=== PATIENT | female | born 1965 | race Caucasian/White ===

== ENCOUNTER 2017-07-25 14:08 | Emergency (ER) | payer OTHER ==
[2017-07-25 14:23] VITALS: RESP 18; TEMP 97.7
--- NOTE | 2017-07-25 15:15 | EDPHY ---
H & P Stated Complaint: vaginal bleeding since sat Time Seen by Provider: 07/25/17 15:15 HPI/ROS: CHIEF COMPLAINT: [ ] HISTORY OF PRESENT ILLNESS: [Need 4: Location, Duration, Severity, Quality, Context, Timing Modifying Factors, Associated S&S] REVIEW OF SYSTEMS: A comprehensive 10 point review of systems is otherwise negative aside from elements mentioned in the history of present illness. Source: Patient Exam Limitations: No limitations - Personal History LMP (Females 10-55): Pre Menstrual Current Tetanus/Diphtheria Vaccine: Yes - Medical/Surgical History Hx Asthma: No Hx Chronic Respiratory Disease: No Hx Diabetes: No Hx Cardiac Disease: No Hx Renal Disease: No Hx Cirrhosis: No Hx Alcoholism: No Hx HIV/AIDS: No Hx Splenectomy or Spleen Trauma: No Other PMH: anemia - Social History Smoking Status: Never smoked - Physical Exam Exam: General Appearance: [Alert, no distress] Eyes: [Pupils equal and round no pallor or injection] ENT, Mouth: [Mucous membranes moist] Respiratory: [There are no retractions, lungs are clear to auscultation] Cardiovascular: [Regular rate and rhythm] Gastrointestinal: [Abdomen is soft and nontender, no masses, bowel sounds normal] Neurological: [A&O, normal motor function, normal sensory exam, normal cranial nerves] Skin: [Warm and dry, no rashes] Musculoskeletal: [Neck is supple nontender] Extremities: [symmetrical, full range of motion] Psychiatric: [Patient is oriented X 3, there is no agitation] Constitutional: Initial Vital Signs Temperature (C) 36.5 C 07/25/17 14:20 Heart Rate 84 07/25/17 14:20 Respiratory Rate 18 07/25/17 14:20 Blood Pressure 162/70 H 07/25/17 14:20 O2 Sat (%) 98 07/25/17 14:20 O2 Delivery Mode Room Air Allergies/Adverse Reactions: No Known Allergies Allergy (Unverified 12/28/09 10:55) Home Medications: Medication Instructions Recorded IBUPROFEN 07/25/17 IRON 07/25/17 Departure - Departure Referrals: Altagracia Tomlinson PA [Primary Care Provider] - As per Instructions
[2017-07-25 15:26] LABS: PLATELET COUNT 286 10^3/uL (150-400)
--- NOTE | 2017-07-25 15:31 | EDPHY ---
H & P Time Seen by Provider: 07/25/17 15:15 HPI/ROS: CHIEF COMPLAINT: Vaginal bleeding HISTORY OF PRESENT ILLNESS: The patient is a [place]-speaking 52 y/o female with a history of vaginal bleeding since April complaining of increased bleeding since Tuesday, 2 days ago. She began experiencing vaginal bleeding in April and has been bleeding almost every day since. An ultrasound in April showed a uterine fibroid. She has been on hormone therapy with some relief in bleeding, but stopped taking Premarin. She has an appointment with her heat treater on August 04 to discuss further treatment. Tuesday, she noticed an increase in vaginal bleeding. Today she bled through 8 double pads. She has associated weakness, dizziness, lower abdominal pain, blurred vision upon standing, and bloating. She denies cramping, syncope, constipation, or any other associated symptoms. She was taking iron supplements but began experiencing constipation so she is now consuming a high iron diet. REVIEW OF SYSTEMS: Constitutional: No fever, no chills Eyes: Blurred vision upon standing ENT: No sore throat Respiratory: No cough, no shortness of breath Cardiac: No chest pain Gastrointestinal: Lower abdominal pain. No nausea, no vomiting Genitourinary: No hematuria, no dysuria Musculoskeletal: No leg pain or swelling Skin: No rash Neurological: No headache, no numbness Psychiatric: No depression Adult Physical General Appearance: Alert, no distress, pale appearance Eyes: Pupils equal and round, no conjunctival pallor or injection ENT, Mouth: Mucous membranes moist Neck: Normal inspection Respiratory: Lungs are clear to auscultation Cardiovascular: Regular rate and rhythm Gastrointestinal: Suprapubic tenderness, abdomen is soft Neurological: A&O, nonfocal, normal gait Skin: Warm and dry, no rash Extremities: Nontender, no pedal edema Psychiatric: Mood and affect normal Past Medical/Surgical History: Past Medical History: 1. Fibroids Social History: 1. [place]-speaking 2. Employed 3. Lives in [place] Smoking Status: Never smoked Physical Exam: General Appearance: Alert, pleasant Eyes: Pupils equal and round, no conjunctival pallor or injection ENT, Mouth: Mucous membranes moist Neck: Normal inspection Respiratory: Lungs are clear to auscultation Cardiovascular: Regular rate and rhythm Gastrointestinal: Suprapubic tenderness, abdomen is soft Neurological: A&O, nonfocal exam Skin: Warm and dry, no rash Extremities: Nontender, no pedal edema Psychiatric: Mood and affect normal Constitutional: Initial Vital Signs Temperature (C) 36.5 C 07/25/17 14:20 Heart Rate 84 07/25/17 14:20 Respiratory Rate 18 07/25/17 14:20 Blood Pressure 162/70 H 07/25/17 14:20 O2 Sat (%) 98 07/25/17 14:20 O2 Delivery Mode Room Air Allergies/Adverse Reactions: No Known Allergies Allergy (Unverified 12/28/09 10:55) Home Medications: Medication Instructions Recorded IBUPROFEN 07/25/17 IRON 07/25/17 medroxyPROGESTERone [Provera 10 mg 10 mg PO BID #60 tab 07/25/17 (*)] Medical Decision Making ED Course/Re-evaluation: Hematocrit today is 32. Pelvic exam reveals a moderate amount of blood in the vaginal vault, no active bleeding, uterus is mildly tender and slightly enlarged. Prior ultrasound revealed fibroids, including ultrasound from April 2017. Presentation consistent with dysfunctional uterine bleeding secondary to fibroids. I consulted Dr. Evan Hameed from [facility]. We will place her on Provera 10 mg twice daily and have her resume taking iron supplementation. She will also increase her oral fluids. She has an appointment in 1 week to see rent and miscellaneous remittance clerk at [facility]. They will try to get her in sooner with OBGYN. Differential Diagnosis: Differential diagnosis includes does not limited to miscarriage, ectopic , severe anemia, hypotension, dehydration. - Data Points Laboratory Results: Laboratory Results 07/25/17 15:00 07/25/17 15:00 07/25/17 07/25/17 07/25/17 15:00 15:00 15:00 WBC 9.97 10^3/uL H 10^3/uL (3.80-9.50) RBC 3.80 10^6/uL L 10^6/uL (4.18-5.33) Hgb 10.4 g/dL L g/dL (12.6-16.3) Hct 32.1 % L % (38.0-47.0) MCV 84.5 fL fL (81.5-99.8) MCH 27.4 pg L pg (27.9-34.1) MCHC 32.4 g/dL g/dL (32.4-36.7) RDW 13.6 % % (11.5-15.2) Plt Count 286 10^3/uL 10^3/uL (150-400) MPV 11.2 fL fL (8.7-11.7) Neut % (Auto) 70.4 % % (39.3-74.2) Lymph % (Auto) 21.7 % % (15.0-45.0) [place] % (Auto) 5.7 % % (4.5-13.0) Eos % (Auto) 1.7 % % (0.6-7.6) Baso % (Auto) 0.2 % L % (0.3-1.7) Nucleat RBC Rel Count 0.0 % % (0.0-0.2) Absolute Neuts (auto) 7.02 10^3/uL H 10^3/uL (1.70-6.50) Absolute Lymphs (auto) 2.16 10^3/uL 10^3/uL (1.00-3.00) Absolute Monos (auto) 0.57 10^3/uL 10^3/uL (0.30-0.80) Absolute Eos (auto) 0.17 10^3/uL 10^3/uL (0.03-0.40) Absolute Basos (auto) 0.02 10^3/uL 10^3/uL (0.02-0.10) Absolute Nucleated RBC 0.00 10^3/uL 10^3/uL (0-0.01) Immature Gran % 0.3 % % (0.0-1.1) Immature Gran # 0.03 10^3/uL 10^3/uL (0.00-0.10) Sodium 139 mEq/L mEq/L (134-144) Potassium 4.0 mEq/L mEq/L (3.5-5.2) Chloride 108 mEq/L mEq/L (97-110) Carbon Dioxide 21 mEq/l L mEq/l (22-31) Anion Gap 10 mEq/L mEq/L (8-16) BUN 12 mg/dL mg/dL (7-23) Creatinine 0.8 mg/dL mg/dL (0.6-1.0) Estimated GFR > 60 Glucose 91 mg/dL mg/dL (70-100) Calcium 8.3 mg/dL L mg/dL (8.5-10.4) Total Bilirubin 0.1 mg/dL mg/dL (0.1-1.4) AST 18 IU/L IU/L (14-46) ALT 31 IU/L IU/L (9-52) Alkaline Phosphatase 96 IU/L IU/L (38-126) Total Protein 6.1 g/dL L g/dL (6.3-8.2) Albumin 3.4 g/dL L g/dL (3.5-5.0) Beta HCG, Qual NEGATIVE Medications Given: Discontinued Medications Sodium Chloride (Ns) 1,000 mls @ 0 mls/hr IV ONCE ONE; Wide Open PRN Reason: Protocol Stop: 07/25/17 15:43 Last Admin: 07/25/17 16:09 Dose: 1,000 mls Medroxyprogesterone Acetate (Provera) 10 mg PO EDNOW ONE Stop: 07/25/17 16:00 Last Admin: 07/25/17 17:00 Dose: 10 mg Departure - Departure Disposition: Home, Routine, Self-Care Clinical Impression: Dysfunctional uterine bleeding Condition: Good Instructions: Dysfunctional Uterine Bleeding (ED) Additional Instructions: 1. Take your prescription for Provera twice a day as instructed. 2. Please begin taking your iron supplement again. 3. [facility] will call you to try and schedule an sooner appointment. 4. Please return to the ED for worsening of condition. 1. [place] dale receta para Provera dos veces al pearce a kaelyn le indicaron. 2. Por favor empiece a santa el suplemento de mathew de nuevo. 3. [facility] le llamara para tratar de hacer la graham antes de la que tiene programada. 4. Por favor regrese a la sb de emergencia si dale condicion empeora. Referrals: Altagracia Tomlinson PA [Primary Care Provider] - As per Instructions Prescriptions: medroxyPROGESTERone [Provera 10 mg (*)] 10 mg PO BID #60 tab Print Language: [place] Report Scribed for: Laura Stafford Report Scribed by: Danay Valdes Date of Report: 07/25/17 Time of Report: 16:03 Physician Review and Approval Statement: 07/25/17 16:03 Portions of this note were transcribed by a medical records assistant. I personally performed a history, physical exam, medical decision making, and confirmed accuracy of information the transcribed note.
--- NOTE | 2017-07-25 15:31 | EDPHY ---
H & P Time Seen by Provider: 07/25/17 15:15 HPI/ROS: CHIEF COMPLAINT: Vaginal bleeding HISTORY OF PRESENT ILLNESS: The patient is a Bhutanese-speaking 52 y/o female with a history of vaginal bleeding since April complaining of increased bleeding since Tuesday, 2 days ago. She began experiencing vaginal bleeding in April and has been bleeding almost every day since. An ultrasound in April showed a uterine fibroid. She has been on hormone therapy with some relief in bleeding, but stopped taking Premarin. She has an appointment with her lead python developer on August 04 to discuss further treatment. Tuesday, she noticed an increase in vaginal bleeding. Today she bled through 8 double pads. She has associated weakness, dizziness, lower abdominal pain, blurred vision upon standing, and bloating. She denies cramping, syncope, constipation, or any other associated symptoms. She was taking iron supplements but began experiencing constipation so she is now consuming a high iron diet. REVIEW OF SYSTEMS: Constitutional: No fever, no chills Eyes: Blurred vision upon standing ENT: No sore throat Respiratory: No cough, no shortness of breath Cardiac: No chest pain Gastrointestinal: Lower abdominal pain. No nausea, no vomiting Genitourinary: No hematuria, no dysuria Musculoskeletal: No leg pain or swelling Skin: No rash Neurological: No headache, no numbness Psychiatric: No depression Adult Physical General Appearance: Alert, no distress, pale appearance Eyes: Pupils equal and round, no conjunctival pallor or injection ENT, Mouth: Mucous membranes moist Neck: Normal inspection Respiratory: Lungs are clear to auscultation Cardiovascular: Regular rate and rhythm Gastrointestinal: Suprapubic tenderness, abdomen is soft Neurological: A&O, nonfocal, normal gait Skin: Warm and dry, no rash Extremities: Nontender, no pedal edema Psychiatric: Mood and affect normal Past Medical/Surgical History: Past Medical History: 1. Fibroids Social History: 1. [place]anese-speaking 2. Employed 3. Lives in [place] Smoking Status: Never smoked Physical Exam: General Appearance: Alert, pleasant Eyes: Pupils equal and round, no conjunctival pallor or injection ENT, Mouth: Mucous membranes moist Neck: Normal inspection Respiratory: Lungs are clear to auscultation Cardiovascular: Regular rate and rhythm Gastrointestinal: Suprapubic tenderness, abdomen is soft Neurological: A&O, nonfocal exam Skin: Warm and dry, no rash Extremities: Nontender, no pedal edema Psychiatric: Mood and affect normal Constitutional: Initial Vital Signs Temperature (C) 36.5 C 07/25/17 14:20 Heart Rate 84 07/25/17 14:20 Respiratory Rate 18 07/25/17 14:20 Blood Pressure 162/70 H 07/25/17 14:20 O2 Sat (%) 98 07/25/17 14:20 O2 Delivery Mode Room Air Allergies/Adverse Reactions: No Known Allergies Allergy (Unverified 12/28/09 10:55) Home Medications: Medication Instructions Recorded IBUPROFEN 07/25/17 IRON 07/25/17 medroxyPROGESTERone [Provera 10 mg 10 mg PO BID #60 tab 07/25/17 (*)] Medical Decision Making ED Course/Re-evaluation: Hematocrit today is 32. Pelvic exam reveals a moderate amount of blood in the vaginal vault, no active bleeding, uterus is mildly tender and slightly enlarged. Prior ultrasound revealed fibroids, including ultrasound from April 2017. Presentation consistent with dysfunctional uterine bleeding secondary to fibroids. I consulted Dr. Evan Hameed from [facility]. We will place her on Provera 10 mg twice daily and have her resume taking iron supplementation. She will also increase her oral fluids. She has an appointment in 1 week to see log buyer at [facility]. They will try to get her in sooner with OBGYN. Differential Diagnosis: Differential diagnosis includes does not limited to miscarriage, ectopic , severe anemia, hypotension, dehydration. - Data Points Laboratory Results: Laboratory Results 07/25/17 15:00 07/25/17 15:00 07/25/17 07/25/17 07/25/17 15:00 15:00 15:00 WBC 9.97 10^3/uL H 10^3/uL (3.80-9.50) RBC 3.80 10^6/uL L 10^6/uL (4.18-5.33) Hgb 10.4 g/dL L g/dL (12.6-16.3) Hct 32.1 % L % (38.0-47.0) MCV 84.5 fL fL (81.5-99.8) MCH 27.4 pg L pg (27.9-34.1) MCHC 32.4 g/dL g/dL (32.4-36.7) RDW 13.6 % % (11.5-15.2) Plt Count 286 10^3/uL 10^3/uL (150-400) MPV 11.2 fL fL (8.7-11.7) Neut % (Auto) 70.4 % % (39.3-74.2) Lymph % (Auto) 21.7 % % (15.0-45.0) [place] % (Auto) 5.7 % % (4.5-13.0) Eos % (Auto) 1.7 % % (0.6-7.6) Baso % (Auto) 0.2 % L % (0.3-1.7) Nucleat RBC Rel Count 0.0 % % (0.0-0.2) Absolute Neuts (auto) 7.02 10^3/uL H 10^3/uL (1.70-6.50) Absolute Lymphs (auto) 2.16 10^3/uL 10^3/uL (1.00-3.00) Absolute Monos (auto) 0.57 10^3/uL 10^3/uL (0.30-0.80) Absolute Eos (auto) 0.17 10^3/uL 10^3/uL (0.03-0.40) Absolute Basos (auto) 0.02 10^3/uL 10^3/uL (0.02-0.10) Absolute Nucleated RBC 0.00 10^3/uL 10^3/uL (0-0.01) Immature Gran % 0.3 % % (0.0-1.1) Immature Gran # 0.03 10^3/uL 10^3/uL (0.00-0.10) Sodium 139 mEq/L mEq/L (134-144) Potassium 4.0 mEq/L mEq/L (3.5-5.2) Chloride 108 mEq/L mEq/L (97-110) Carbon Dioxide 21 mEq/l L mEq/l (22-31) Anion Gap 10 mEq/L mEq/L (8-16) BUN 12 mg/dL mg/dL (7-23) Creatinine 0.8 mg/dL mg/dL (0.6-1.0) Estimated GFR > 60 Glucose 91 mg/dL mg/dL (70-100) Calcium 8.3 mg/dL L mg/dL (8.5-10.4) Total Bilirubin 0.1 mg/dL mg/dL (0.1-1.4) AST 18 IU/L IU/L (14-46) ALT 31 IU/L IU/L (9-52) Alkaline Phosphatase 96 IU/L IU/L (38-126) Total Protein 6.1 g/dL L g/dL (6.3-8.2) Albumin 3.4 g/dL L g/dL (3.5-5.0) Beta HCG, Qual NEGATIVE Medications Given: Discontinued Medications Sodium Chloride (Ns) 1,000 mls @ 0 mls/hr IV ONCE ONE; Wide Open PRN Reason: Protocol Stop: 07/25/17 15:43 Last Admin: 07/25/17 16:09 Dose: 1,000 mls Medroxyprogesterone Acetate (Provera) 10 mg PO EDNOW ONE Stop: 07/25/17 16:00 Last Admin: 07/25/17 17:00 Dose: 10 mg Departure - Departure Disposition: Home, Routine, Self-Care Clinical Impression: Dysfunctional uterine bleeding Condition: Good Instructions: Dysfunctional Uterine Bleeding (ED) Additional Instructions: 1. Take your prescription for Provera twice a day as instructed. 2. Please begin taking your iron supplement again. 3. [facility] will call you to try and schedule an sooner appointment. 4. Please return to the ED for worsening of condition. 1. [place] dale receta para Provera dos veces al pearce a kaelyn le indicaron. 2. Por favor empiece a santa el suplemento de mathew de nuevo. 3. [facility] le llamara para tratar de hacer la graham antes de la que tiene programada. 4. Por favor regrese a la sb de emergencia si dale condicion empeora. Referrals: Altagracia Tomlinson PA [Primary Care Provider] - As per Instructions Prescriptions: medroxyPROGESTERone [Provera 10 mg (*)] 10 mg PO BID #60 tab Print Language: Bhutanese Report Scribed for: Laura Stafford Report Scribed by: Danay Valdes Date of Report: 07/25/17 Time of Report: 16:03 Physician Review and Approval Statement: 07/25/17 16:03 Portions of this note were transcribed by a medical receptionist. I personally performed a history, physical exam, medical decision making, and confirmed accuracy of information the transcribed note.
[2017-07-25] MEDS ORDERED: NS 1,000 ML IV ONE (15:42)
[2017-07-25] MEDS ORDERED: medroxyPROGESTERone 10 MG TAB PO ONE (15:59)
[2017-07-25 16:08] VITALS: BP 119/61; PULSE 71; O2SAT 97
== END 2017-07-25 17:25 | disposition home or self-care (01) ==
PROC: 3E0337Z Introduction of Electrolytic and Water Balance Substance into Peripheral Vein, Percutaneous Approach (ICD-10-PCS; principal; 2017-07-25)
DX: N93.8 Other specified abnormal uterine and vaginal bleeding (principal); E86.9 Volume depletion, unspecified

== ENCOUNTER → 2017-12-20 | Outpatient (CLI) | payer OTHER | LOC: MERGE 14:57 → FIMAGING 14:57 | DX: Z12.31 Encounter for screening mammogram for malignant neoplasm of breast (principal) ==